=== PATIENT | female | born 2000 | race Caucasian/White ===

== ENCOUNTER 2022-05-08 07:28 | Emergency (ER) | payer OTHER ==
[~2022-05-08] VITALS: Ht 152.4 cm; Wt 72.7 kg
[2022-05-08] MEDS ORDERED: DiphenhydrAMINE HCL 50 MG/ML VIAL IVP ONE (08:15)
[2022-05-08] MEDS ORDERED: MethylPREDNISolone SOD SUCC 125 MG/2 ML VIAL IVP ONE (08:15)
[2022-05-08] MEDS ORDERED: FAMOTIDINE 10 MG/ML 2 ML VIAL IVP ONE (08:15)
[2022-05-08] MEDS ORDERED: SODIUM CHLORIDE 0.9% 1,000 ML IV ONE (08:15)
[2022-05-08] MEDS ORDERED: OXYM15SP57 NASAL (08:20)
[2022-05-08 09:49] VITALS: BP 121/80
[2022-05-08] MEDS ORDERED: PRED-554 PO (09:53)
[2022-05-08] MEDS ORDERED: DIPH50 PO (09:53)
== END 2022-05-08 10:05 | disposition home or self-care (01) ==
LOC: EMS 07:38
DX: T78.40XA Allergy, unspecified, initial encounter (principal); R11.0 Nausea; X58.XXXA Exposure to other specified factors, initial encounter
CPT/HCPCS: 99284; 96374; 96375; 96361; 81025; J1200; J3490; J2930; J7030

== ENCOUNTER 2022-09-13 17:26 | Emergency (ER) | payer OTHER ==
[~2022-09-13] VITALS: Ht 149.9 cm; Wt 72.7 kg
[~2022-09-13 17:26] MED LIST: DIPH50 PO; OXYM15SP57 NASAL; PRED-554 PO
[2022-09-13] MEDS ORDERED: NITR-75 PO (19:49)
[2022-09-13] MEDS ORDERED: PHEN-846 PO (19:49)
[2022-09-13] MEDS ORDERED: MICO45CR76 VG (19:49)
[2022-09-13 20:04] VITALS: BP 125/53
== END 2022-09-13 20:05 | disposition home or self-care (01) ==
LOC: EMS 17:29
DX: N39.0 Urinary tract infection, site not specified (principal); B37.31 Acute candidiasis of vulva and vagina
CPT/HCPCS: 99283; Z7502

== ENCOUNTER 2022-10-31 14:21 | Emergency (ER) | payer OTHER ==
[~2022-10-31] VITALS: Ht 149.9 cm; Wt 74.5 kg
[~2022-10-31 14:21] MED LIST changes: -DIPH50 PO; +MICO45CR76 VG; +NITR-75 PO; -OXYM15SP57 NASAL; +PHEN-846 PO; -PRED-554 PO
[2022-10-31 14:45] LABS: COVID AG,FIA SOURCE NASAL SWAB
[2022-10-31 14:58] LABS: RAPID GROUP A STREP NEGATIVE (NEGATIVE)
[2022-10-31 15:12] LABS: INFLUENZA TYPE A NEGATIVE FOR TYPE A (NEGATIVE); INFLUENZA TYPE B NEGATIVE FOR TYPE B (NEGATIVE)
[2022-10-31 16:35] VITALS: BP 115/71
[2022-10-31] MEDS ORDERED: ACET-66 PO (16:45)
[2022-10-31] MEDS ORDERED: GUAIFDM PO (16:45)
== END 2022-10-31 16:58 | disposition still patient (30) ==
LOC: EMS 14:26
DX: J06.9 Acute upper respiratory infection, unspecified (principal); J02.8 Acute pharyngitis due to other specified organisms; Z20.822 Contact with and (suspected) exposure to COVID-19
CPT/HCPCS: 87430; 87804; 99283

== ENCOUNTER 2023-06-26 07:27 | Emergency (ER) | payer OTHER ==
[~2023-06-26] VITALS: Ht 149.9 cm; Wt 78.0 kg
[~2023-06-26 07:27] MED LIST changes: +ACET-66 PO; +GUAIFDM PO
[2023-06-26 07:37] VITALS: TEMP 98.1
[2023-06-26 07:58] LABS: COVID AG,FIA SOURCE NASAL SWAB
[2023-06-26] MEDS ORDERED: AMOX TR/POT CLAV 875 MG/125 MG TABLET PO ONE (08:00)
[2023-06-26] MEDS ORDERED: KETOROLAC TROMETHAMINE 30 MG/ML VIAL IM ONE (08:00)
[2023-06-26] MEDS ORDERED: DEXAMETHASONE SOD PHOS 4 MG/ML VIAL IM ONE (08:00)
[2023-06-26] MEDS ORDERED: ACET-3385 PO (08:06)
[2023-06-26] MEDS ORDERED: AMOX1TAB16 PO (08:06)
[2023-06-26] MEDS ORDERED: IBUP-1492 PO (08:06)
[2023-06-26 08:26] LABS: SARS-COV2 (COVID) ANTIGEN,FIA Negative (Negative)
[2023-06-26 08:27] LABS: INFLUENZA TYPE A NEGATIVE FOR TYPE A (NEGATIVE); INFLUENZA TYPE B NEGATIVE FOR TYPE B (NEGATIVE)
[2023-06-26 09:04] LABS: RAPID GROUP A STREP NEGATIVE (NEGATIVE)
[2023-06-26 09:33] VITALS: BP 110/72; PULSE 91; RESP 16
== END 2023-06-26 09:36 | disposition home or self-care (01) ==
LOC: EMS 07:27
DX: J03.90 Acute tonsillitis, unspecified (principal); Z20.822 Contact with and (suspected) exposure to COVID-19
CPT/HCPCS: 99284; 87426; 87430; 87804; 96372; J1100; J1885

== ENCOUNTER 2023-07-14 22:38 | Emergency (ER) | payer OTHER ==
[~2023-07-14] VITALS: Ht 149.9 cm; Wt 72.7 kg
[~2023-07-14 22:38] MED LIST changes: +ACET-3385 PO; +AMOX1TAB16 PO; +IBUP-1492 PO
[2023-07-14 22:46] VITALS: BP 113/72; PULSE 107; RESP 13; TEMP 98.2
[2023-07-14] MEDS ORDERED: LEVO50 PO (22:54)
[2023-07-14 23:06] LABS: COVID AG,FIA SOURCE NASAL SWAB
[2023-07-14 23:29] LABS: SARS-COV2 (COVID) ANTIGEN,FIA Negative (Negative)
[2023-07-14] MEDS ORDERED: IBUPROFEN 600 MG TABLET PO ONE (23:30)
[2023-07-14] MEDS ORDERED: PredniSONE 20 MG TABLET PO ONE (23:30)
[2023-07-14] MEDS ORDERED: CLINDAMYCIN HCL 150 MG CAPSULE PO ONE (23:30)
[2023-07-14 23:32] LABS: INFLUENZA TYPE A NEGATIVE FOR TYPE A (NEGATIVE); INFLUENZA TYPE B NEGATIVE FOR TYPE B (NEGATIVE)
[2023-07-14] MEDS ORDERED: CLIN300C58 PO (23:40)
[2023-07-14] MEDS ORDERED: PRED-554 PO (23:40)
[2023-07-14] MEDS ORDERED: IBUP-1492 PO (23:40)
== END 2023-07-14 23:57 | disposition home or self-care (01) ==
LOC: EMS 22:39
DX: J03.90 Acute tonsillitis, unspecified (principal); E03.9 Hypothyroidism, unspecified; Z20.822 Contact with and (suspected) exposure to COVID-19
CPT/HCPCS: 99284; 87426; 87430; 87804; J7512

== ENCOUNTER 2023-09-12 12:27 | Emergency (ER) | payer OTHER ==
[~2023-09-12] VITALS: Ht 149.9 cm; Wt 72.3 kg
[~2023-09-12 12:27] MED LIST changes: -ACET-3385 PO; -ACET-66 PO; -AMOX1TAB16 PO; +CLIN300C58 PO; -GUAIFDM PO; +LEVO50 PO; -MICO45CR76 VG; -NITR-75 PO; -PHEN-846 PO; +PRED-554 PO
[2023-09-12 12:37] VITALS: TEMP 98
[2023-09-12] MEDS ORDERED: AMOX1TAB15 PO (12:39)
[2023-09-12 12:52] LABS: APPEARANCE,URINE CLEAR (CLEAR); BILIRUBIN,URINE NEGATIVE (NEGATIVE); COLOR,URINE LIGHT YELLOW (YELLOW); GLUCOSE, URINE (UA) NEGATIVE (NEGATIVE); KETONES,URINE NEGATIVE (NEGATIVE); LEUKOCYTE ESTERASE ,URINE NEGATIVE (NEGATIVE); NITRATE,URINE NEGATIVE (NEGATIVE); OCCULT BLOOD,URINE NEGATIVE (NEGATIVE); PH,URINE 5.5 (5.0-8.0); PROTEIN,URINE NEGATIVE (NEGATIVE); SPECIFIC GRAVITIY, URINE 1.021 (1.003-1.030); UROBILINOGEN,URINE <=1.0 mg/dL (<=1.0)
[2023-09-12 12:56] LABS: HCG,QUAL URINE NEGATIVE (NEGATIVE)
[2023-09-12 13:21] LABS: BASOPHILS % (AUTO) 0.8 % (0.0-2.0); EOSINOPHILS % (AUTO) 2.5 % (1.0-6.0); HEMATOCRIT 38.1 % (36-46); HEMOGLOBIN 12.8 g/dL (12.0-16.0); LYMPHOCYTES # (AUTO) 3.8 K/uL (1.0-4.8); LYMPHOCYTES % (AUTO) 45.9 % (22.0-44.0); MEAN CORPUSCULAR HEMOGLOBIN 30.6 pg (26.0-34.0); MEAN CORPUSCULAR HGB CONC 33.5 G/dL (31.0-37.0); MEAN CORPUSCULAR VOLUME 91 fL (80-100); MONOCYTES # (AUTO) 0.5 K/uL (0.1-1.0); MONOCYTES % (AUTO) 5.7 % (2.0-9.0); NEUTROPHILS # (AUTO) 3.7 K/uL (1.8-7.7); NEUTROPHILS % (AUTO) 45.1 % (40.0-70.0); PLATELET COUNT (AUTO) 324 K/uL (150-450); RED BLOOD CELL COUNT(AUTO) 4.17 MIL/uL (4.00-5.20); RED CELL DISTRIBUTION WIDTH 12.5 % (11.5-14.5); WHITE BLOOD COUNT (AUTO) 8.3 K/uL (4.5-11.0)
[2023-09-12 13:32] LABS: ANION GAP 8 mmol/L (8-16); CALCIUM, TOTAL 9.2 mg/dL (8.8-10.5); CARBON DIOXIDE 26 mmol/L (22-29); CHLORIDE 100 mmol/L (98-107); CREATININE 0.68 mg/dL (0.60-1.30); GLOMERULAR FILTR. RATE CALC > 60 mL/min (>60); GLUCOSE,RANDOM 87 mg/dL (70-110); POTASSIUM 3.6 mmol/L (3.5-5.1); SODIUM SERUM 134 mmol/L (136-145); UREA NITROGEN, BLOOD 9 mg/dL (7-18)
[2023-09-12 13:37] LABS: ALANINE AMINOTRANSFERASE 31 U/L (12-78); ALBUMIN 3.9 g/dL (3.4-5.0); ALKALINE PHOSPHATASE 32 U/L (46-116); ASPARTATE AMINOTRANSFERASE 22 U/L (15-37); BILIRUBIN,TOTAL 0.4 mg/dL (0.1-1.0); LIPASE 39 U/L (16-77); TOTAL PROTEIN, SERUM 7.9 g/dL (6.4-8.2)
[2023-09-12] MEDS ORDERED: ONDA-104 PO (14:34)
[2023-09-12] MEDS: ONDANSETRON HCL 4 MG TABLET PO ONE (14:47)
[2023-09-12] MEDS: IBUPROFEN 600 MG TABLET PO ONE (14:48)
[2023-09-12 14:56] VITALS: BP 122/74; PULSE 86; RESP 18
== END 2023-09-12 15:26 | disposition home or self-care (01) ==
LOC: EMS 12:46
DX: M54.6 Pain in thoracic spine (principal); R11.2 Nausea with vomiting, unspecified; E03.9 Hypothyroidism, unspecified
CPT/HCPCS: 99283; 80053; 81003; 83690; 84703; 85025; 36415; Q0162